=== PATIENT | female | born 1985 | race Caucasian/White ===

== ENCOUNTER 2020-10-27 08:11 | Outpatient (CLI) | payer OTHER, SELFPAY ==
--- NOTE | 2020-10-27 14:20 | P.PCNPFT_ITS ---
PFT Interpretation This is a pulmonary function test with pre and post-bronchodilator spirometry, plethysmography and diffusing capacity. The test was performed and results interpreted in accordance with the 2019 and 2005 ATS/ERS Task Force guidelines respectively using the Global Lung Function Initiative-2012 reference equations. Patient demonstrated good effort and c ooperation. Reproducibility criteria were met. The quality of the pre bronchodilator spirometry maneuver was Grade A and post bronchodilator spirometry maneuver was Grade A. Findings: Spirometry: The contour the inspiratory and expiratory flow tracing are normal. The pre bronchodilator FVC is 4.08 L, 113% predicted. The pre bronchodilator FEV1 is 3.10 L, 102% predicted. The FEV1: FVC ratio is 76%. The post bronchodilator FVC is 4.10 L, representing no change. The post bronchodilator FEV1 is 3.17 L, representing a 3% increase. Plethysmography: The total lung capacity is 5.78 L, 118% predicted. The functional residual capacity is 2.45 L, 91% predicted. The residual volume is 1.70 L, 118% predicted. Diffusing capacity: The absolute diffusion capacity is 22.1, 92% predicted. T he diffusing capacity corrected for alveolar volume is 4.33, 89% predicted. Impression: The spirometry is normal without evidence of an obstructive abnormality. There is no significant improvement after inhaling a single dose of albuterol. The lung volumes are normal. The diffusing capacity is normal. There are no prior studies for comparison
== END 2020-10-27 08:12 | disposition home or self-care (01) ==
PROVIDERS: PCP Family Medicine; Visit Provider Family Medicine
DX: J45.909 Unspecified asthma, uncomplicated (principal)
CPT/HCPCS: 94060; 94726; 94729

== ENCOUNTER 2022-01-06 10:05 | Outpatient (CLI) | payer BC, SELFPAY ==
--- NOTE | ~2022-01-06 | US_ITS ---
EXAMINATION: US venous doppler LE RT DATE: 01/06/2022 11:06 INDICATION: Right lower limb pain. TECHNIQUE: Grayscale ultrasound images without and with compression and Doppler ultrasound images of the right lower extremity veins were obtained. COMPARISON: None. FINDINGS: The visualized portions of right common femoral vein, profunda (deep) femoral vein, femoral vein, pop liteal vein, peroneal veins, posterior tibial veins, and greater saphenous vein outflow are patent. IMPRESSION: 1. No deep venous thrombosis. Reviewed, dictated and finalized at location A.
== END 2022-01-06 10:06 | disposition home or self-care (01) ==
PROVIDERS: PCP Family Medicine; Visit Provider Nurse Practitioner Gerontology
DX: M79.606 Pain in leg, unspecified (principal)
CPT/HCPCS: 93971